=== PATIENT | male | born 1945 | race Caucasian/White ===

== ENCOUNTER 2019-10-19 15:17 | Inpatient (IN) | payer MEDICARE ==
--- NOTE | 2019-10-19 15:49 | ED ---
General Adult HPI - General Chief complaint: Recheck/Abnormal Lab/Rx Stated complaint: RUPTURE AORTA Time Seen by Provider: 10/19/19 15:29 Source: patient, RN/MD, RN notes reviewed Mode of arrival: ambulatory Limitations: no limitations - History of Present Illness Initial comments: Is a 74-year-old male with a known history of abdominal aortic aneurysm who was also having a history of chronic low back pain for the past year and a third who was an MRI today but was found that he had in addition to the abdominal a border measuring 4.4 cm evidence of dissection at the level of the kidneys with the aorta measuring 4 cm. The common iliac artery measures 2 cm on the left proximally. Patient states having no symptoms are different than when he start ed having last year and a third. No fevers chills nausea vomiting sweats no abdominal pain he has some numbness to the right leg which she states started at the same time over a year ago. - Related Data Home Medications Medication Instructions Recorded Confirmed Biotin (Unknown Strength) 1 tab PO Q48H 10/19/19 10/19/19 Cholecalciferol [Vitamin D3 (25 1,000 unit PO Q48H 10/19/19 10/19/19 Mcg = 1000 Iu)] Multivitamins, Thera [Multivitamin 1 tab PO Q48H 10/19/19 10/19/19 (formulary)] [place] 3-6-9 1 tab PO Q48H 10/19/19 10/19/19 Allergies Allergy/AdvReac Type Severity Reaction Status Date / Time No Known Allergies Allergy Verified 10/19/19 18:17 Review of Systems ROS Statement: Those systems with pertinent positive or pertinent negative responses have been documented in the HPI. ROS Other: All systems not noted in ROS Statement are negative. Past Medical History Additional Past Medical History / Comment(s): aneurysm, History of Any Multi-Drug Resistant Organisms: None Reported Past Surgical History: Adenoidectomy, Tonsillectomy Additional Past Surgical History / Comment(s): cataract, right arm, Past Psychological History: No Psychological Hx Reported Smoking Status: Former smoker Past Alcohol Use History: Occasional Past Drug Use History: Marijuana General Exam - General Exam Comments Initial Comments: This a well-developed asthenic appearing male was awake alert oriented 3 Limitations: no limitations General appearance: alert, in no apparent distress Head exam: Present: atraumatic, normocephalic, normal inspection Eye exam: Present: normal appearance, PERRL, EOMI. Absent: scleral icterus, conjunctival injection, periorbital swelling ENT exam: Present: normal exam, mucous membranes moist Neck exam: Present: normal inspection. Absent: tenderness, meningismus, lymphadenopathy Respiratory exam: Present: normal lung sounds bilaterally. Absent: respiratory distress, wheezes, rales, rhonchi, stridor Cardiovascular Exam: Present: regular rate, normal rhythm, normal heart sounds. Absent: systolic murmur, diastolic murmur, rubs, gallop, clicks GI/Abdominal exam: Present: soft, normal bowel sounds. Absent: distended, tenderness, guarding, rebound, rigid Extremities exam: Present: normal inspection, full ROM, normal capillary refill. Absent: tenderness, pedal edema, joint swelling, calf tenderness Back exam: Present: normal inspection Neurological exam: Present: alert, oriented X3, CN II-XII intact Psychiatric exam: Present: normal affect, normal mood Skin exam: Present: warm, dry, intact, normal color. Absent: rash Course Vital Signs 10/19/19 10/19/19 10/19/19 15:18 15:43 16:00 Temperature 97.9 F Pulse Rate 89 90 90 Respiratory 18 18 18 Rate Blood Pressure 149/84 152/98 133/91 O2 Sat by Pulse 95 95 95 Oximetry 10/19/19 10/19/19 10/19/19 16:30 17:00 17:30 Temperature Pulse Rate 90 81 81 Respiratory 18 18 18 Rate Blood Pressure 133/86 122/76 128/69 O2 Sat by Pulse 95 96 96 Oximetry 10/19/19 10/19/19 18:00 18:30 Temperature Pulse Rate 81 81 Respiratory 18 18 Rate Blood Pressure 131/90 139/95 O2 Sat by Pulse 96 96 Oximetry - Reevaluation(s) Reevaluation #1: 10/19/19 15:49 I did discuss case with Dr. Redman who will look at the MRI as well as evaluate the patient in the emergency department. EKG Findings - EKG Results: EKG: interpreted by ERMD, sinus rhythm (Sinus rhythm 94. Interval 186 QRS duration 100 QT since QTC 366/457 nonspecific inferior configuration) Medical Decision Making - Medical Decision Making Patient's findings were discussed with the patient has as well as with Dr. Zheng and (the patient emergency department. Patient will be admi tted with workup done by cardiology and evaluation for preparation for endovascular grafting. - Lab Data Result diagrams: 10/19/19 15:35 10/19/19 15:35 Lab Results 10/19/19 10/19/19 10/19/19 Range/Units 15:35 15:35 15:35 WBC 7.1 (3.8-10.6) k/uL RBC 4.49 (4.30-5.90) m/uL Hgb 15.0 (13.0-17.5) gm/dL Hct 45.2 (39.0-53.0) % MCV 100.8 H (80.0-100.0) fL MCH 33.3 (25.0-35.0) pg MCHC 33.1 (31.0-37.0) g/dL RDW 13.8 (11.5-15.5) % Plt Count 184 (150-450) k/uL Neutrophils % 43 % Lymphocytes % 47 % Monocytes % 4 % Eosinophils % 2 % Basophils % 1 % Neutrophils # 3.0 (1.3-7.7) k/uL Lymphocytes # 3.3 (1.0-4.8) k/uL Monocytes # 0.3 (0-1.0) k/uL Eosinophils # 0.2 (0-0.7) k/uL Basophils # 0.0 (0-0.2) k/uL PT 10.1 (9.0-12.0) sec INR 1.0 (<1.2) APTT 23.6 (22.0-30.0) sec Sodium 140 (137-145) mmol/L Potassium 3.8 (3.5-5.1) mmol/L Chloride 109 H (98-107) mmol/L Carbon Dioxide 21 L (22-30) mmol/L Anion Gap 10 mmol/L BUN 16 (9-20) mg/dL Creatinine 0.77 (0.66-1.25) mg/dL Est GFR (CKD-EPI)AfAm >90 (>60 ml/min/1.73 sqM) Est GFR (CKD-EPI)NonAf >90 (>60 ml/min/1.73 sqM) Glucose 120 H (74-99) mg/dL Calcium 9.6 (8.4-10.2) mg/dL Magnesium 2.2 (1.6-2.3) mg/dL Total Bilirubin 0.3 (0.2-1.3) mg/dL AST 28 (17-59) U/L ALT 19 (4-49) U/L Alkaline Phosphatase 100 (38-126) U/L Creatine Kinase 118 (55-170) U/L Total Protein 7.5 (6.3-8.2) g/dL Albumin 4.2 (3.5-5.0) g/dL - Radiology Data Radiology results: report reviewed (I did review the imaging and report evidence of a dissection. See complete report), image reviewed Disposition Clinical Impression: Aortic dissection Disposition: [facility]MITT[facility] IP TO [facility] Condition: Fair Referrals: None,Stated [REFERRING] - 1-2 days
[2019-10-19 16:28] LABS: Basophils % (A) 1 %; Eosinophils # (A) 0.2 k/uL (0-0.7); Eosinophils % (A) 2 %; HCT 45.2 % (39.0-53.0); Lymphocytes # (A) 3.3 k/uL (1.0-4.8); Lymphocytes % (A) 47 %; MCH 33.3 pg (25.0-35.0); MCHC 33.1 g/dL (31.0-37.0); MCV 100.8 fL (80.0-100.0); Mean Platelet Volume 7.6; Monocytes # (A) 0.3 k/uL (0-1.0); Monocytes % (A) 4 %; Neutrophils % (A) 43 %; Platelet Count 184 k/uL (150-450); RBC 4.49 m/uL (4.30-5.90); RDW 13.8 % (11.5-15.5); WBC 7.1 k/uL (3.8-10.6)
[2019-10-19 16:38] LABS: ALT 19 U/L (4-49); AST 28 U/L (17-59); African American GFR (CKD) >90 (>60 ml/min/1.73 sqM); Albumin 4.2 g/dL (3.5-5.0); Alkaline Phosphatase 100 U/L (38-126); Anion Gap 10 mmol/L; Blood Urea Nitrogen 16 mg/dL (9-20); Calcium 9.6 mg/dL (8.4-10.2); Carbon Dioxide 21 mmol/L (22-30); Chloride 109 mmol/L (98-107); Creatine Kinase 118 U/L (55-170); Glucose 120 mg/dL (74-99); Magnesium 2.2 mg/dL (1.6-2.3); Non-African American GFR(CKD) >90 (>60 ml/min/1.73 sqM); Potassium 3.8 mmol/L (3.5-5.1); Sodium 140 mmol/L (137-145); Total Bilirubin 0.3 mg/dL (0.2-1.3); Total Protein 7.5 g/dL (6.3-8.2)
[2019-10-19 16:49] LABS: Partial Thromboplastin Time 23.6 sec (22.0-30.0); Prothrombin Time 10.1 sec (9.0-12.0)
--- NOTE | 2019-10-19 18:01 | CT ---
EXAMINATION TYPE: CT angio thor/abd pel aorta DATE OF EXAM: 10/19/2019 COMPARISON: None HISTORY: AAA with dissection CT DLP: 1522.3 mGycm Automated exposure control for dose reduction was used. CONTRAST: Performed without and with IV Contrast, patient injected with 100 mL of Isovue 370. There are 3-D post processed images. Images were obtained from the thoracic inlet to the floor the [facility] with IV contrast. FINDINGS: There is tortuous aortic arch. There is aneurysm of the proximal descending thoracic aorta that measu res up to 5.5 cm. There is posterior wall thrombus and dissection seen with the false lumen posterior . There is dissecting intimal flap extending from the proximal descending thoracic aorta to the lower abdominal aorta. There is irregular plaque formation and luminal narrowing of the lower abdominal ao rta near the bifurcation. There is complex dissection at the aortic bifurcation. The anterior false l umen at the lower abdominal aorta fills the left common iliac artery. The triple-lumen has less flow and fills the right common iliac artery. The true lumen fills the celiac artery and superior mesenter ic artery. The left renal artery arises from the true lumen. The right renal artery appears to arise from the false lumen. The lower abdominal aorta has aneurysmal enlargement up to 4 cm in diameter. I see no sign of active bleeding. There is no contrast extravasation. There is patency of the iliac and femoral arteries without evidence of hemodynamic stenosis. Liver spleen stomach pancreas appear intact. Bile ducts are not dilated. Kidneys show no hydronephros is. There are bilateral multiple renal parapelvic cysts. There is no retroperitoneal adenopathy. Ther e is no sign of a bowel obstruction. There is no free air. Bladder distends smoothly. There is no jennifer e fluid in the pelvis. Thoracic and lumbar spine are intact. There is no compression fracture. Sternum is intact. IMPRESSION: There is complex dissection of the abdominal aorta and the descending thoracic aorta. There is aneury sm of the proximal descending thoracic aorta and the lower abdominal aorta as above. The true lumen i s narrowed of the lower abdominal aorta which fills the right common iliac artery.
[2019-10-19] MEDS ORDERED: NALOXONE 0.4 MG/ML 1 ML VIAL IV PRN (19:06)
[2019-10-19] MEDS ORDERED: SODIUM CHLORIDE 0.9% 1,000 ML IV SCH (19:15)
--- NOTE | 2019-10-19 20:58 | P.GSCN ---
History of Present Illness Consult date: 10/19/19 Reason for Consult: aortic dissection History of present illness: 74 year old male presented to the ER after an MRI secondary to a dissection in the aorta found on the study. Patient states having some issues with his lower extremities and chronic back discomfort. Patient denies any current abdominal pain, back pain, or pain with ambulation. He denies any fevers, chills, nausea, vomiting, chest pain or shortness of breath. He states that he used to experience sharp pains in his chest years ago but nothing recently. Review of Systems All systems: negative (what is mentioned in the HPI or PMH) Past Medical History Additional Past Medical History / Comment(s): aneurysm, History of Any Multi-Drug Resistant Organisms: None Reported Past Surgical History: Adenoidectomy, Tonsillectomy Additional Past Surgical History / Comment(s): cataract, right arm, Past Psychological History: No Psychological Hx Reported Smoking Status: Former smoker Past Alcohol Use History: Occasional Past Drug Use History: Marijuana Medications and Allergies Home Medications Medication Instructions Recorded Confirmed Type Biotin (Unknown Strength) 1 tab PO Q48H 10/19/19 10/19/19 History Cholecalciferol [Vitamin D3 (25 1,000 unit PO Q48H 10/19/19 10/19/19 History Mcg = 1000 Iu)] Multivitamins, Thera [Multivitamin 1 tab PO Q48H 10/19/19 10/19/19 History (formulary)] [place] 3-6-9 1 tab PO Q48H 10/19/19 10/19/19 History Allergies Allergy/AdvReac Type Severity Reaction Status Date / Time No Known Allergies Allergy Verified 10/19/19 18:17 Surgical - Exam Vital Signs Temp Pulse Resp BP Pulse Ox 97.9 F 89 18 149/84 95 10/19/19 15:18 10/19/19 15:18 10/19/19 15:18 10/19/19 15:18 10/19/19 15:18 - General well developed, well nourished, no distress - Eyes PERRL, normal ocular movement - ENT normal pinna, normal nares - Neck no masses - Respiratory normal expansion - Cardiovascular Rhythm: regular - Abdomen Abdomen: soft, non tender - Integumentary no rash - Neurologic normal coordination, normal sensation - Musculoskeletal normal posture - Psychiatric oriented to time, oriented to person, oriented to place, speech is normal Results - Labs 10/19/19 15:35 10/19/19 15:35 Abnormal Lab Results - Last 24 Hours (Table) 10/19/19 10/19/19 Range/Units 15:35 15:35 MCV 100.8 H (80.0-100.0) fL Chloride 109 H (98-107) mmol/L Carbon Dioxide 21 L (22-30) mmol/L Glucose 120 H (74-99) mg/dL Diabetes panel 10/19/19 Range/Units 15:35 Sodium 140 (137-145) mmol/L Potassium 3.8 (3.5-5.1) mmol/L Chloride 109 H (98-107) mmol/L Carbon Dioxide 21 L (22-30) mmol/L BUN 16 (9-20) mg/dL Creatinine 0.77 (0.66-1.25) mg/dL Glucose 120 H (74-99) mg/dL Calcium 9.6 (8.4-10.2) mg/dL AST 28 (17-59) U/L ALT 19 (4-49) U/L Alkaline Phosphatase 100 (38-126) U/L Total Protein 7.5 (6.3-8.2) g/dL Albumin 4.2 (3.5-5.0) g/dL Calcium panel 10/19/19 Range/Units 15:35 Calcium 9.6 (8.4-10.2) mg/dL Albumin 4.2 (3.5-5.0) g/dL Pituitary panel 10/19/19 Range/Units 15:35 Sodium 140 (137-145) mmol/L Potassium 3.8 (3.5-5.1) mmol/L Chloride 109 H (98-107) mmol/L Carbon Dioxide 21 L (22-30) mmol/L BUN 16 (9-20) mg/dL Creatinine 0.77 (0.66-1.25) mg/dL Glucose 120 H (74-99) mg/dL Calcium 9.6 (8.4-10.2) mg/dL Adrenal panel 10/19/19 Range/Units 15:35 Sodium 140 (137-145) mmol/L Potassium 3.8 (3.5-5.1) mmol/L Chloride 109 H (98-107) mmol/L Carbon Dioxide 21 L (22-30) mmol/L BUN 16 (9-20) mg/dL Creatinine 0.77 (0.66-1.25) mg/dL Glucose 120 H (74-99) mg/dL Calcium 9.6 (8.4-10.2) mg/dL Total Bilirubin 0.3 (0.2-1.3) mg/dL AST 28 (17-59) U/L ALT 19 (4-49) U/L Alkaline Phosphatase 100 (38-126) U/L Total Protein 7.5 (6.3-8.2) g/dL Albumin 4.2 (3.5-5.0) g/dL - Imaging CT scan - abdomen: report reviewed, image reviewed CT scan - chest: report reviewed, image reviewed Assessment and Plan Assessment: 1. Descending thoracic aortic dissection 2. Infrarenal aortic aneuysm Plan: blood [id number] control SBP 90-130's Had a long discussion with patient and his of future intervention options. I agree with admission and monitoring overnight. I reviewed the CT scan with the family. Will need surgical repair which can be done as outpatient. The dissection appears chronic in nature and patient has no symptoms currently. Follow up in the office for further discussion.
[2019-10-19 21:24] LABS: Appearance,Urine Clear (Clear); Bilirubin,Urine Negative (Negative); Blood,Urine Negative (Negative); Color,Urine Yellow; Glucose,Urine (UA) Negative (Negative); Ketones,Urine Negative (Negative); Leukocyte Esterase,Urine Negative (Negative); Nitrite,Urine Negative (Negative); PH, Urine 5.5 (5.0-8.0); Protein,Urine Negative (Negative); Urobilinogen,Urine <2.0 mg/dL (<2.0)
[2019-10-19 21:28] LABS: Specific Gravity,Urine >1.050 (1.001-1.035)
[2019-10-19] MEDS ORDERED: ENALAPRILAT 1.25 MG/ML 1 ML VIAL IVP PRN (23:13)
--- NOTE | 2019-10-19 23:15 | P.HPIM ---
History of Present Illness H&P Date: 10/19/19 Chief Complaint: Dissected aortic aneurysm, COPD, PAD, severe spinal stenosis, hypertension 74-year-old male one of my office patient with been seen since last year with past medical history of COPD, chronic lower back pain, hypertension, AAA with ultrasound was due and ordered this time. Patient presented to the office back in September 13 for severe sign and symptom of spinal stenosis was referred for lumbar x-ray showed severe degenerative joint disease. Patient was scheduled for an MRI of the lumbar spine came back with multiple disc disease and spinal stenosis with incidental finding of infrarenal dissected aortic aneurysm. Patient was sent to the emergency department where was seen and evaluated and end up having Dr. Redman vascular seen the patient. 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 Patient will be admitted and stabilized and might need to be scheduled for stent of the descending thoracic aortic aneurysm and infrarenal abdominal aneurysm. Continue to complain of significant back pain, continued to complain of mild COPD with no major flareup lately. Review of Systems CONSTITUTIONAL: Well-developed no acute respiratory distress. EYES: No icterus sclerae, no conjunctivitis. EARS, NOSE, MOUTH, THROAT, and FACE: No sore throat, lymphadenopathy, carotid bruits or deformity. RESPIRATORY: Positive shortness of breath cough wheezes. CARDIOVASCULAR: Positive PND orthopnea palpitations without angina. GASTROINTESTINAL: Mild IBS with abdominal discomfort with nausea. GENITOURINARY: Negative for Hematuria or UTI, no kidney stones. INTEGUMENT/BREAST: Negative for any muscular injury with mild osteoarthritis.. HEMATOLOGIC/LYMPHATIC: Negative for bleed or purpura. MUSCULOSKELTAL: Negative for Myalgia or arthralgia. NEURLOGICAL: No LOC, Sz or syncope, blurred vision dizziness or abnormality.. Significant weakness and lower extremity. BEHAVIORAL/PSYCH: Negative. ENDOCRINE: Negative. Past Medical History Past Medical History: Eye Disorder, Hypertension, Osteoarthritis (OA) Additional Past Medical History / Comment(s): aneurysm, History of Any Multi-Drug Resistant Organisms: None Reported Past Surgical History: Adenoidectomy, Tonsillectomy Additional Past Surgical History / Comment(s): cataract, right arm, Past Anesthesia/Blood Transfusion Reactions: No Reported Reaction Past Psychological History: No Psychological Hx Reported Smoking Status: Former smoker Past Alcohol Use History: Occasional Past Drug Use History: Marijuana - Past Family History Mother Family Medical History: Cancer Additional Family Medical History / Comment(s): Colon CA Medications and Allergies Home Medications Medication Instructions Recorded Confirmed Type Biotin (Unknown Strength) 1 tab PO Q48H 10/19/19 10/19/19 History Cholecalciferol [Vitamin D3 (25 1,000 unit PO Q48H 10/19/19 10/19/19 History Mcg = 1000 Iu)] Multivitamins, Thera [Multivitamin 1 tab PO Q48H 10/19/19 10/19/19 History (formulary)] [place] 3-6-9 1 tab PO Q48H 10/19/19 10/19/19 History Allergies Allergy/AdvReac Type Severity Reaction Status Date / Time No Known Allergies Allergy Verified 10/19/19 18:17 Physical Exam Vitals: Vital Signs Temp Pulse Pulse Resp BP BP Pulse Ox 10/19/19 19:49 98.4 F 69 16 159/91 96 10/19/19 19:31 98.0 F 75 17 140/90 97 10/19/19 18:30 81 18 139/95 96 10/19/19 18:00 81 18 131/90 96 10/19/19 17:30 81 18 128/69 96 10/19/19 17:00 81 18 122/76 96 10/19/19 16:30 90 18 133/86 95 10/19/19 16:00 90 18 133/91 95 10/19/19 15:43 90 18 152/98 95 10/19/19 15:18 97.9 F 89 18 149/84 95 Intake and Output 10/19/19 10/19/19 10/19/19 06:59 14:59 22:59 Other: Weight 79.379 kg General Appearance: Alert, cooperative, no distress, appears stated age. Neck HEENT: Supple, no lymphadenopathy, no thyroid enlargement, no carotid bruits. Lungs: Decreased breath some bilaterally with fine rhonchi positive mild expect ed wheezes. Chest Wall: Decrease expansion with deep inspiration no tenderness and no deformity was found on exam, no costochondral pain or discomfort. Heart: Irregular rate and rhythm, S1, S2 normal, positive S3 positive JVD. Back: Significant pain and discomfort in the L-spine area thoracic spine area as well. Abdomen: Soft, non-tender, bowel sounds active all four quadrants, no masses, no organomegaly. Extremities: Significant arthritis of both knees and hips with mild discoloration from the knee down. Pulses: 2+ and symmetric. Skin: Skin color, texture, tugor normal, no rashes or lesions. Neurologic: Alert oriented x3 cranial nerves II through XII intact, no motor deficit, no abnormal balance or gait. Results CBC & Chem 7: 10/19/19 15:35 10/19/19 15:35 Labs: Abnormal Lab Results - Last 24 Hours (Table) 10/19/19 10/19/19 10/19/19 Range/Units 15:35 15:35 20:55 MCV 100.8 H (80.0-100.0) fL Chloride 109 H (98-107) mmol/L Carbon Dioxide 21 L (22-30) mmol/L Glucose 120 H (74-99) mg/dL Ur Specific [place] >1.050 H (1.001-1.035) Thrombosis Risk Factor Assmnt - DVT/VTE Prophylaxis DVT/VTE Prophylaxis: Pharmacologic Prophylaxis ordered, Mechanical Prophylaxis ordered - Choose All That Apply Any of the Below Risk Factors Present?: No Each Risk Factor Represents 2 Points: Age 61-74 years Other congenital or acquired thrombophilia - If yes, enter type in comment: No Thrombosis Risk Factor Assessment Total Risk Factor Score: 2 Thrombosis Risk Factor Assessment Level: Low Risk Assessment and Plan Assessment: 1 the ascending thoracic aortic aneurysm dissection: Patient will be seen vascular, patient will be hospitalized for now conservative management. 4 stenting in the next 2 weeks. 2 large infra renal aortic aneurysm with mild dissection: Patient will require to go for stenting as well. 3 severe spinal stenosis: With severe arthritis lumbar spine area patient might need to go for pain management after the intervention on had aortic aneurysm. 4 hypertension: Well-controlled currently we will continue to use but beta lawrence keep the blood pressure below 1:30 systolic or below 90 diastolic. 5 mild PAD: No intervention is required at this point. 6 COPD: Patient will continue on O2, updraft treatment, will consult pulmonary for clearance for his aneurysm repair. 7 BPH: Watch for any urinary retention. 8 mild valvular heart disease: Will order an echocardiogram to be done in the hospital for better evaluation of the left ventricle and if there is any need for stress test or cardiac testing before aneurysm repair. 9 GI prophylaxis: Patient will be on pantoprazole 40 mg daily. 11 DVT prophylaxis: Patient can be on heparin subcutaneous Venodyne boots and knee-high AMRIK hose. CODE STATUS: Full code. Admit patient to inpatient status for more than 2 nights.
[2019-10-20 07:21] LABS: Basophils # (A) 0.1 k/uL (0-0.2); Basophils % (A) 1 %; Eosinophils # (A) 0.1 k/uL (0-0.7); Eosinophils % (A) 2 %; HCT 43.9 % (39.0-53.0); HGB 13.8 gm/dL (13.0-17.5); Lymphocytes # (A) 2.7 k/uL (1.0-4.8); Lymphocytes % (A) 39 %; MCH 32.1 pg (25.0-35.0); MCHC 31.5 g/dL (31.0-37.0); MCV 101.8 fL (80.0-100.0); Macrocytosis Slight; Mean Platelet Volume 7.9; Monocytes # (A) 0.3 k/uL (0-1.0); Monocytes % (A) 5 %; Neutrophils # (A) 3.4 k/uL (1.3-7.7); Neutrophils % (A) 49 %; Platelet Count 179 k/uL (150-450); RBC 4.31 m/uL (4.30-5.90); WBC 6.8 k/uL (3.8-10.6)
[2019-10-20 07:36] LABS: ALT 17 U/L (4-49); AST 24 U/L (17-59); African American GFR (CKD) >90 (>60 ml/min/1.73 sqM); Albumin 3.6 g/dL (3.5-5.0); Alkaline Phosphatase 87 U/L (38-126); Anion Gap 6 mmol/L; Blood Urea Nitrogen 14 mg/dL (9-20); Carbon Dioxide 22 mmol/L (22-30); Chloride 112 mmol/L (98-107); Glucose 101 mg/dL (74-99); Non-African American GFR(CKD) >90 (>60 ml/min/1.73 sqM); Potassium 3.9 mmol/L (3.5-5.1); Sodium 140 mmol/L (137-145); Total Bilirubin 0.3 mg/dL (0.2-1.3); Total Protein 6.7 g/dL (6.3-8.2)
[2019-10-20] MEDS ORDERED: PANTOPRAZOLE 40 MG/10 ML VIAL IVP SCH (09:00)
[2019-10-20] MEDS ORDERED: METOPROLOL TARTRATE 25 MG TAB PO SCH (09:00)
[2019-10-20] MEDS ORDERED: HEPARIN SODIUM,PORCINE 5,000 UNIT/ML 1 ML VIAL SQ SCH (09:00)
[2019-10-20] MEDS ORDERED: amLODIPine 5 MG TAB PO SCH (09:00)
[2019-10-20] MEDS ORDERED: ATORVASTATIN 40 MG TAB PO SCH (09:30)
[2019-10-20 09:46] VITALS: BP 150/82; PULSE 78; RESP 20; TEMP 98.3
--- NOTE | 2019-10-20 10:40 | P.DS ---
Providers Date of admission: 10/19/19 19:23 Expected date of discharge: 10/20/19 Attending physician: Doug Zheng Consults: 10/19/19 19:07 Consult Physician Routine Consulting Provider: Braulio [place] Consult Reason/Comments: Cardiology clearance for surgery Do you want consulting provider notified?: Yes 10/19/19 19:08 Consult Physician Urgent Consulting Provider: Jesse Redman Reason/Comments: Aortic aneurysm and dissection Do you want consulting provider notified?: Already Contacted Primary care physician: [facility] Course: 74-year-old male one of my office patient with been seen since last year with past medical history of COPD, chronic lower back pain, hypertension, AAA with ultrasound was due and ordered this time. Patient presented to the office back in September 13 for severe sign and symptom of spinal stenosis was referred for lumbar x-ray showed severe degenerative joint disease. Patient was scheduled for an MRI of the lumbar spine came back with multiple disc disease and spinal stenosis with incidental finding of infrarenal dissected aortic aneurysm. Patient was sent to the emergency department where was seen and evaluated and end up having Dr. Redman vascular seen the patient. 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 Patient will be admitted and stabilized and might need to be scheduled for stent of the descending thoracic aortic aneurysm and infrarenal abdominal aneurysm. Continue to complain of significant back pain, continued to complain of mild COPD with no major flareup lately. 10/19: The patient has been rechecked today. He has been seen by cardiology with plan for Lexiscan stress test to be done tomorrow and he will have an appointment Friday at 3:[address] Thorne. We have added in amlodipine and Lopressor for blood pressure control and also Lipitor is new. These prescriptions will be sent to his pharmacy. We have added in a consult with pulmonary medicine for preop clearance and PFT testing in the office. Patient will be discharged home today in stable condition. Discharge Diagnoses: 1 the ascending thoracic aortic aneurysm dissection 2 large infra renal aortic aneurysm with mild dissection, incidental finding on MRI 3 severe spinal stenosis: With severe arthritis lumbar spine 4 hypertension 5 mild PAD 6 COPD 7 BPH 8 mild valvular heart disease 9 COVID-19 Discharge plan: Home Impression and plan of care have been directed as dictated by the signing physician. Emilia Noel nurse practitioner acting as scribe for signing physician. Patient Condition at Discharge: Good Plan - Discharge Summary Discharge Rx Participant: Yes New Discharge Prescriptions: New Metoprolol Tartrate [Lopressor] 25 mg PO BID #60 tab amLODIPine [Norvasc] 5 mg PO DAILY #30 tab Atorvastatin [Lipitor] 40 mg PO DAILY #30 tablet Continue Multivitamins, Thera [Multivitamin (formulary)] 1 tab PO Q48H Cholecalciferol [Vitamin D3 (25 Mcg = 1000 Iu)] 1,000 unit PO Q48H Biotin (Unknown Strength) 1 tab PO Q48H [place] 3-6-9 1 tab PO Q48H Discharge Medication List Biotin (Unknown Strength) 1 tab PO Q48H 10/19/19 [History] Cholecalciferol [Vitamin D3 (25 Mcg = 1000 Iu)] 1,000 unit PO Q48H 10/19/19 [History] Multivitamins, Thera [Multivitamin (formulary)] 1 tab PO Q48H 10/19/19 [History] [place] 3-6-9 1 tab PO Q48H 10/19/19 [History] Atorvastatin [Lipitor] 40 mg PO DAILY #30 tablet 10/20/19 [Rx] Metoprolol Tartrate [Lopressor] 25 mg PO BID #60 tab 10/20/19 [Rx] amLODIPine [Norvasc] 5 mg PO DAILY #30 tab 10/20/19 [Rx] Follow up Appointment(s)/Referral(s): Contreras Zuniga MD [STAFF PHYSICIAN] - 1 Week Juhi Thorne MD [STAFF PHYSICIAN] - 10/22/19 3:30 pm Doug Zheng MD [Primary Care Provider] - 1 Week Discharge Disposition: HOME SELF-CARE
--- NOTE | 2019-10-20 10:46 | P.PN ---
Subjective Progress Note Date: 10/20/19 Patient is seen and examined sitting up in bed. Patient has no complaints this morning. There were no acute changes through the night. Denies any shortness of breath, chest pain, abdominal pain. Patient was seen by Dr. Redman yesterday and reviewed CT angiogram results with patient and his . Patient will follow up after discharge with Dr. Redman. Objective - Vital Signs Vital signs: Vital Signs Temp 98.3 F 10/20/19 09:00 Pulse 78 10/20/19 09:00 Resp 20 10/20/19 09:00 BP 150/82 10/20/19 09:00 Pulse Ox 96 10/20/19 09:00 Intake & Output 10/19/19 10/20/19 10/20/19 18:59 06:59 18:59 Intake Total 360 Balance 360 Weight 79.379 kg 78.3 kg Intake: Oral 360 Other: Voiding Method Toilet # Voids 1 - Exam General appearance: The patient is alert, oriented, in no acute distress. HET: Head is normocephalic and atraumatic. Pupils are equal and reactive. Oropharynx is clear without lesions. Neck: Supple without lymphadenopathy. Trachea midline. No audible carotid bruits bilaterally. Heart: S1 S2. Regular rate and rhythm. Lungs: No crackles or wheezes are heard. Abdomen: Soft, nontender, nondistended with bowel sounds. No peritoneal signs. No palpable organomegaly or masses. Extremities: Normal skin color and turgor. No cyanosis, rash, ulceration, clubbing, or edema. Radial and pedal pulses are 2/4 bilaterally. Neurological: No focal deficits. Strength and sensation are grossly intact. - Labs CBC & Chem 7: 10/20/19 05:51 10/20/19 05:51 Labs: Abnormal Lab Results - Last 24 Hours (Table) 10/19/19 10/19/19 10/19/19 Range/Units 15:35 15:35 20:55 MCV 100.8 H (80.0-100.0) fL Chloride 109 H (98-107) mmol/L Carbon Dioxide 21 L (22-30) mmol/L Creatinine (0.66-1.25) mg/dL Glucose 120 H (74-99) mg/dL Ur Specific [place] >1.050 H (1.001-1.035) 10/20/19 10/20/19 Range/Units 05:51 05:51 MCV 101.8 H (80.0-100.0) fL Chloride 112 H (98-107) mmol/L Carbon Dioxide (22-30) mmol/L Creatinine 0.60 L (0.66-1.25) mg/dL Glucose 101 H (74-99) mg/dL Ur Specific [place] (1.001-1.035) Assessment and Plan Assessment: 1. Descending thoracic aortic dissection 2. Infrarenal aortic aneurysm Plan: Patient is being discharged today. The plan if for outpatient surgical repair. He will follow-up with Dr. Redman in the office for further discussion. The above dictated assessment and findings were discussed with Dr. Lane. The impression and plan of care have been directed as dictated.
--- NOTE | 2019-10-20 11:05 | CONS ---
CONSULTATION Mr. Campo is a 74-year-old male who was admitted through the emergency room for evaluation of dissection of the aorta. The patient was noted to have and an abdominal aortic aneurysm was dissection yesterday, underwent an MRI that revealed evidence of dissection of the thoracic aorta. There appears to be a chronic dissection. He was admitted to undergo further evaluation. His CT scan revealed complex dissection of the abdominal aorta and descending thoracic aorta at type 2 dissection and aneurysm proximal descending aorta and lower abdominal aorta as well. The finding of dissection is unclear. 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 Although a year ago, he had an episode of severe back discomfort which he had at times, but it was worse than usual. He did not seek medical attention at that time. He denies any dizziness or palpitation. No change in his breathing. He denies any wheezing. No cough. He denies any history of PND, orthopnea, or peripheral edema. He coronary risk factors negative for prior history of smoking or hypertension, he is nondiabetic. He smokes marijuana. MEDICATIONS: At the time of admission included omega-3 fish oil, vitamin D, amlodipine, and metoprolol tartrate. REVIEW OF SYSTEMS: RESPIRATORY SYSTEM: he has no recent wheezing. No cough. No history of obstructive lung disease. GI SYSTEM: No recent GI bleeding, no peptic ulcer disease. SYSTEM: No dysuria, hematuria. NERVOUS SYSTEM: No stroke or seizure. PHYSICAL EXAMINATION: A 74-year-old male, alert, oriented, in no apparent distress. Blood pressure 146/80 with a heart rate in the 60s. HEAD: Normocephalic. EYES: Sclerae nonicteric. NECK: Bruit on the left side. HEART: Regular rate and rhythm. S1, S2. No S3 with systolic murmur heard at the base, ejection type, no diastolic murmur, no rub. ABDOMEN: Soft, nontender, positive bowel sounds. no organomegaly. EXTREMITIES: No edema, intact pulses. LAB DATA: Revealed hemoglobin 13.8. BUN creatinine 14.6, potassium 3.9. EKG reveals sinus mechanism, rate of 94, normal axis and intervals, cannot exclude inferior myocardial infarction of unknown duration. IMPRESSION: 1. Type B aortic dissection, appears to be chronic. It is possible that the back discomfort he had a year ago could be the timing of the dissection. 2. History of hypertension as an outpatient, treated. 3. History of chronic back pain. RECOMMENDATION: From the cardiac standpoint, agree with your plan to obtain echocardiogram with Doppler. I will increase the dose of his beta lawrence. I will add a statin to his regimen. Patient will need preop evaluation for possible surgical repair. If it is a type B chronic dissection at times clinical observation can be considered, depending on the size of his abdominal dissection and the flow. He will be further evaluated as an outpatient regarding that finding. I discussed those findings with the patient as well as Dr. Zheng. He will be set up to undergo a myocardial perfusion imaging as an outpatient and he will be followed at that time. Thank you for this consult. Will follow with you. MMODL / IJN: [id number] /
--- NOTE | 2019-10-20 11:57 | ECHOF ---
Referral Reason:LVF, AV MEASUREMENTS -------- HEIGHT: 177.8 cm WEIGHT: 78.0 kg BP: IVSd: 1.8 cm (0.6 - 1.1) LVIDd: 2.4 cm (3.9 - 5.3) LVPWd: 1.6 cm (0.6 - 1.1) IVSs: 2.0 cm LVIDs: 1.9 cm LVPWs: 1.5 cm LAESV Index (A-L): 36.64 ml/m Ao Diam: 3.8 cm (2.0 - 3.7) AV Cusp: 2.1 cm (1.5 - 2.6) LA Diam: 3.1 cm (2.7 - 3.8) MV EXCURSION: 7.419 mm (> 18.000) MV EF SLOPE: 53 mm/s (70 - 150) EPSS: 1.0 cm MV E [place]: 0.71 m/s MV DecT: 125 ms MV A [place]: 0.55 m/s MV E/A Ratio: 1.30 AR PHT: 437 ms RAP: 5.00 mmHg RVSP: 20.68 mmHg FINDINGS -------- Sinus rhythm. This was a technically adequate study. The left ventricular size is normal. There is moderate concentric left ventricular hypertrophy. O verall left ventricular systolic function is normal with, an EF between 55 - 60 %. The right ventricle is normal in size. LA is moderately dilated 34-39 ml/m2 The right atrial size is normal. The aortic valve is trileaflet and appears structurally normal. There is mild aortic regurgitation. The mitral valve is normal. Mild mitral regurgitation is present. The tricuspid valve appears structurally normal. Mild tricuspid regurgitation present. Right vent ricular systolic pressure is normal at < 35 mmHg. There is no pulmonic regurgitation present. The aortic root is dilated measuring 3.8 cm. IVC Not well visulized. There is no pericardial effusion. CONCLUSIONS -------- 1. Sinus rhythm. 2. This was a technically adequate study. 3. The left ventricular size is normal. 4. There is moderate concentric left ventricular hypertrophy. 5. Overall left ventricular systolic function is normal with, an EF between 55 - 60 %. 6. The right ventricle is normal in size. 7. LA is moderately dilated 34-39 ml/m2 8. The right atrial size is normal. 9. The aortic valve is trileaflet and appears structurally normal. 10. There is mild aortic regurgitation. 11. The mitral valve is normal. 12. Mild mitral regurgitation is present. 13. The tricuspid valve appears structurally normal. 14. Mild tricuspid regurgitation present. 15. Right ventricular systolic pressure is normal at < 35 mmHg. 16. There is no pulmonic regurgitation present. 17. The aortic root is dilated measuring 3.8 cm. 18. IVC Not well visulized. 19. There is no pericardial effusion. PORTAL ARCHITECT: Linda Cramer RDCS
--- NOTE | 2019-10-20 13:12 | P.CNPUL ---
History of Present Illness Consult date: 10/20/19 Requesting physician: Doug Zheng Reason for consult: other Chief complaint: Pulmonary clearance for abdominal aortic aneurysm repair surgery History of present illness: 74-year-old white male patient of Dr. Zheng with known history of abdominal aortic aneurysm, COPD, chronic and ongoing history of smoking marijuana on a daily basis, chronic lower back pain, hypertension, who went for an outpatient MRI of the lumbar spine which showed severe degenerative joint disease and spinal stenosis and incidental finding of infrarenal dissected aortic aneurysm. Patient was then sent to the emergency department to be evaluated by vascular surgery. Otherwise he was asymptomatic, did not complain of any chest pain, no abdominal pain. Patient did have some issues with his lower extremities and chr onic back discomfort. Denied any shortness of breath, no chest pain, no fevers, chills, nausea no vomiting. Computed tomography scan of the chest, abdomen and pelvis showed complex dissection of the abdominal aorta and the descending thoracic aorta. There was an aneurysm of the proximal descending thoracic aorta in the lower abdominal aorta, with narrowing of the true lumen of the lower abdominal aorta which fills the right common iliac artery. Patient denies any pulmonary symptoms, no coughing, no wheezing, no shortness of breath. Vital signs have been stable. Labs showed white blood cell count of 7.1, hemoglobin 15.0, coagulation profile was within normal limits, sodium is 140, potassium is 3.8, chloride is 109, CO2 is 21, BUN of 16, creatinine is 0.7, LFTs were within normal limits, urinalysis was negative for any sign of infection, coronavirus PCR was negative. Echocardiogram showed moderate concentric left ventricular hypertrophy, EF between 55-60%, mild aortic regurgitation, mild mitral regurgitation, mild tricuspid regurgitation, and right-sided pressures less than 35 mmHg. IVC is not well visualized. Dilated aortic root measuring 3.8 cm. No pericardial effusion. Room air pulse ox is 96%, no fever or chills, we were asked to see the patient for pulmonary clearance, bedside PFT has been ordered and is pending at this time, possible discharge home is pending with outpatient stress test for cardiac clearance and surgery for repair of the descending thoracic aortic dissection and infrarenal aortic aneurysm Review of Systems All systems: negative Constitutional: Denies chills, Denies fever Eyes: denies blurred vision, denies pain Ears, nose, mouth and throat: Denies headache, Denies sore throat Cardiovascular: Denies chest pain, Denies shortness of breath Respiratory: Denies cough Gastrointestinal: Denies abdominal pain, Denies diarrhea, Denies nausea, Denies vomiting Musculoskeletal: Reports low back pain, Denies myalgias Integumentary: Denies pruritus, Denies rash Neurological: Denies numbness, Denies weakness Psychiatric: Denies anxiety, Denies depression Endocrine: Denies fatigue, Denies weight change Past Medical History Past Medical History: Eye Disorder, Hypertension, Osteoarthritis (OA) Additional Past Medical History / Comment(s): aneurysm, History of Any Multi-Drug Resistant Organisms: None Reported Past Surgical History: Adenoidectomy, Tonsillectomy Additional Past Surgical History / Comment(s): cataract, right arm, Past Anesthesia/Blood Transfusion Reactions: No Reported Reaction Past Psychological History: No Psychological Hx Reported Smoking Status: Former smoker Past Alcohol Use History: Occasional Past Drug Use History: Marijuana - Past Family History Mother Family Medical History: Cancer Additional Family Medical History / Comment(s): Colon CA Medications and Allergies Home Medications Medication Instructions Recorded Confirmed Type Biotin (Unknown Strength) 1 tab PO Q48H 10/19/19 10/19/19 History Cholecalciferol [Vitamin D3 (25 1,000 unit PO Q48H 10/19/19 10/19/19 History Mcg = 1000 Iu)] Multivitamins, Thera [Multivitamin 1 tab PO Q48H 10/19/19 10/19/19 History (formulary)] [place] 3-6-9 1 tab PO Q48H 10/19/19 10/19/19 History Atorvastatin [Lipitor] 40 mg PO DAILY #30 tablet 10/20/19 Rx Metoprolol Tartrate [Lopressor] 25 mg PO BID #60 tab 10/20/19 Rx amLODIPine [Norvasc] 5 mg PO DAILY #30 tab 10/20/19 Rx Allergies Allergy/AdvReac Type Severity Reaction Status Date / Time No Known Allergies Allergy Verified 10/19/19 18:17 Physical Exam Vitals: Vital Signs Temp Pulse Pulse Resp BP BP Pulse Ox 10/20/19 09:00 98.3 F 78 20 150/82 96 10/20/19 04:00 98.1 F 67 16 146/86 95 10/20/19 00:00 98.4 F 69 16 154/91 96 10/19/19 19:31 98.0 F 75 17 140/90 97 10/19/19 18:30 81 18 139/95 96 10/19/19 18:00 81 18 131/90 96 10/19/19 17:30 81 18 128/69 96 10/19/19 17:00 81 18 122/76 96 10/19/19 16:30 90 18 133/86 95 10/19/19 16:00 90 18 133/91 95 10/19/19 15:43 90 18 152/98 95 10/19/19 15:18 97.9 F 89 18 149/84 95 Intake and Output 10/19/19 10/20/19 10/20/19 22:59 06:59 14:59 Intake Total 360 Balance 360 Intake: Oral 360 Other: Voiding Method Toilet # Voids 1 Weight 79.379 kg 78.3 kg GENERAL EXAM: Alert, very pleasant, 74-year-old white male on room air with a pulse ox of 96%, comfortable in no apparent distress. HEAD: Normocephalic/atraumatic. EYES: Normal reaction of pupils, equal size. Conjunctiva pink, sclera white. NOSE: Clear with pink turbinates. THROAT: No erythema or exudates. NECK: No masses, no JVD, no thyroid enlargement, no adenopathy. CHEST: No chest wall deformity. Symmetrical expansion. LUNGS: Equal air entry with no crackles, wheeze, rhonchi or dullness. CVS: Regular rate and rhythm, normal S1 and S2, no gallops, no murmurs, no rubs ABDOMEN: Soft, nontender. No hepatosplenomegaly, normal bowel sounds, no guarding or rigidity. EXTREMITIES: No clubbing, no edema, no cyanosis, 2+ pulses and upper and lower extremities. MUSCULOSKELETAL: Muscle strength and tone normal. SPINE: No scoliosis or deformity SKIN: No rashes CENTRAL NERVOUS SYSTEM: Alert and oriented -3. No focal deficits, tone is normal in all 4 extremities. PSYCHIATRIC: Alert and oriented -3. Appropriate affect. Intact judgment and insight. Results - Laboratory Findings CBC and BMP: 10/20/19 05:51 10/20/19 05:51 PT/INR, D-dimer PT 10.1 sec (9.0-12.0) 10/19/19 15:35 INR 1.0 (<1.2) 10/19/19 15:35 Abnormal lab findings: Abnormal Labs 10/19/19 10/19/19 10/19/19 15:35 15:35 20:55 MCV 100.8 H Chloride 109 H Carbon Dioxide 21 L Creatinine Glucose 120 H Ur Specific [place] >1.050 H 10/20/19 10/20/19 05:51 05:51 MCV 101.8 H Chloride 112 H Carbon Dioxide Creatinine 0.60 L Glucose 101 H Ur Specific [place] - Diagnostic Findings CT scan - chest: report reviewed, image reviewed Assessment and Plan Plan: Assessment: #1. Complex dissection of the abdominal aorta and the descending thoracic a melissa, surgical repair is pending, once cleared by pulmonary and cardiology. This was an incidental finding on the MRI of the lumbar spine obtained for evaluation of low back pain #2. Infrarenal aortic aneurysm #3. Chronic low back pain related to history of degenerative disc disease #4. Hypertension #5. History of COPD not oxygen dependent, not on any inhalers #6. History of abdominal aortic aneurysm under surveillance #7. Osteoarthritis #8. Chronic and ongoing history of marijuana smoking Plan: PFT was ordered, however patient has no pulmonary complaints, is on room air, no difficulty breathing, no congestion, no wheezing, will obtain bedside FEV1 only. He is normally on not on any oxygen, no inhalers. He is cleared for surgery from pulmonary perspective pending review of his FEV1. Vital signs are stable, no pulmonary issues at this time. I performed a history & physical examination of the patient and discussed their management with my nurse practitioner, Sridevi Lopez. I reviewed the nurse practitioner's note and agree with the documented findings and plan of care. Lung sounds are positive for clear breath sounds. The findings and the impression was discussed with the patient. I attest to the documentation by the nurse practitioner. Time with Patient: Greater than 30
--- NOTE | 2019-10-20 13:31 | P.CNPUL ---
History of Present Illness Consult date: 10/20/19 Requesting physician: Doug Zheng Reason for consult: other (Preop clearance for descending chronic thoracic aortic dissection and infrarenal aortic aneurysm repair) Chief complaint: Descending aneurysm repair History of present illness: A very pleasant 74-year-old gentleman who follows with Dr. Zheng as his primary care provider. He has a history of hypertension, hyperlipidemia, osteoarthrit is, ascending thoracic aortic aneurysm. He had an outpatient MRI for his chronic low back pain and was noted to have abdominal aortic aneurysm and abdominal aortic dissection. There is degenerative disc disease and facet arthroplasty without significant spinal stenosis. [facility] on these findings. No chest pain. No abdominal discomfort. No shortness of breath. Some chronic lower extremity discomfort secondary to the chronic low back pain. Thoracic aorta CT revealed complex dissection of the abdominal aorta and descending thoracic aorta which measures 5.5 cm. There is posterior wall thrombus and dissection seen within the false lumen posterior. No active bleeding. No contrast extravasation. There is aneurysm of the proximal descending thoracic aorta in the lower abdominal aorta. True lumen is narrowed of the lower abdominal aorta which fills the right common iliac artery. He had been seen and evaluated by thoracic surgery who feels this is a chronic dissection and the plan will be for repair in the outpatient setting. We are consulting for preop clearance. The patient does have a history of previous tobacco dependence and many years of ongoing marijuana use on a daily basis. He has not been on any inhalers in the outpatient setting. No home oxygen. No pulmonary complaints. He is maintaining O2 saturations in the mid 90s on room air. Able to do his day-to-day activities without any significant shortness of breath. White count 6.8. Hemoglobin 13.8. Sodium 140. Potassium 3.9. Creatinine 0.60. Dennis virus not detected. Review of Systems REVIEW OF SYSTEMS: CONSTITUTIONAL: Denies any recent significant weight loss or weight gain. EYES: Denies change in vision. EARS, NOSE, MOUTH, THROAT: Denies headaches, denies sore throat. CARDIOVASCULAR: Denies chest pain, palpitations or syncopal episodes. RESPIRATORY: Denies shortness of breath, cough, congestion or hemoptysis. GASTROINTESTINAL: Denies change in appetite, denies abdominal pain GENITOURINARY: Denies hematuria, denies infections. MUSKULOSKELETAL: Chronic low back pain with some discomfort in the lower extremities, denies swelling. INTEGUMENTARY: Denies rash, denies eczema. NEUROLOGICAL: Denies recent memory loss, no recent seizure activity. PSYCHIATRIC: Denies anxiety, denies depression. HEMATOLOGIC/LYMPHATIC: Denies anemia, denies enlarged lymph nodes. Past Medical History Past Medical History: Eye Disorder, Hypertension, Osteoarthritis (OA) Additional Past Medical History / Comment(s): aneurysm, History of Any Multi-Drug Resistant Organisms: None Reported Past Surgical History: Adenoidectomy, Tonsillectomy Additional Past Surgical History / Comment(s): cataract, right arm, Past Anesthesia/Blood Transfusion Reactions: No Reported Reaction Past Psychological History: No Psychological Hx Reported Smoking Status: Former smoker Past Alcohol Use History: Occasional Past Drug Use History: Marijuana - Past Family History Mother Family Medical History: Cancer Additional Family Medical History / Comment(s): Colon CA Medications and Allergies Home Medications Medication Instructions Recorded Confirmed Type Biotin (Unknown Strength) 1 tab PO Q48H 10/19/19 10/19/19 History Cholecalciferol [Vitamin D3 (25 1,000 unit PO Q48H 10/19/19 10/19/19 History Mcg = 1000 Iu)] Multivitamins, Thera [Multivitamin 1 tab PO Q48H 10/19/19 10/19/19 History (formulary)] [place] 3-6-9 1 tab PO Q48H 10/19/19 10/19/19 History Atorvastatin [Lipitor] 40 mg PO DAILY #30 tablet 10/20/19 Rx Metoprolol Tartrate [Lopressor] 25 mg PO BID #60 tab 10/20/19 Rx amLODIPine [Norvasc] 5 mg PO DAILY #30 tab 10/20/19 Rx Allergies Allergy/AdvReac Type Severity Reaction Status Date / Time No Known Allergies Allergy Verified 10/19/19 18:17 Physical Exam Vitals: Vital Signs Temp Pulse Pulse Resp BP BP Pulse Ox 10/20/19 09:00 98.3 F 78 20 150/82 96 10/20/19 04:00 98.1 F 67 16 146/86 95 10/20/19 00:00 98.4 F 69 16 154/91 96 10/19/19 19:31 98.0 F 75 17 140/90 97 10/19/19 18:30 81 18 139/95 96 10/19/19 18:00 81 18 131/90 96 10/19/19 17:30 81 18 128/69 96 10/19/19 17:00 81 18 122/76 96 10/19/19 16:30 90 18 133/86 95 10/19/19 16:00 90 18 133/91 95 10/19/19 15:43 90 18 152/98 95 10/19/19 15:18 97.9 F 89 18 149/84 95 Intake and Output 10/19/19 10/20/19 10/20/19 22:59 06:59 14:59 Intake Total 360 Balance 360 Intake: Oral 360 Other: Voiding Method Toilet # Voids 1 Weight 79.379 kg 78.3 kg GENERAL EXAM: Alert, active, pleasant 74-year-old gentleman, on room air, comfortable in no apparent distress. HEAD: Normocephalic. EYES: Normal reaction of pupils, equal size. NOSE: Clear with pink turbinates. THROAT: No erythema or exudates. NECK: No masses, no JVD. CHEST: No chest wall deformity. LUNGS: Equal air entry with no crackles, wheeze, rhonchi or dullness. CVS: S1 and S2 normal with no audible murmur, regular rhythm. ABDOMEN: No hepatosplenomegaly, normal bowel sounds, no guarding or rigidity. SPINE: Chronic low back pain SKIN: No rashes CENTRAL NERVOUS SYSTEM: No focal deficits, tone is normal in all 4 extremities. EXTREMITIES: There is no peripheral edema. No clubbing, no cyanosis. Peripheral pulses are intact. Results - Laboratory Findings CBC and BMP: 10/20/19 05:51 10/20/19 05:51 PT/INR, D-dimer PT 10.1 sec (9.0-12.0) 10/19/19 15:35 INR 1.0 (<1.2) 10/19/19 15:35 Abnormal lab findings: Abnormal Labs 10/19/19 10/19/19 10/19/19 15:35 15:35 20:55 MCV 100.8 H Chloride 109 H Carbon Dioxide 21 L Creatinine Glucose 120 H Ur Specific [place] >1.050 H 10/20/19 10/20/19 05:51 05:51 MCV 101.8 H Chloride 112 H Carbon Dioxide Creatinine 0.60 L Glucose 101 H Ur Specific [place] Assessment and Plan Assessment: 1 Chronic low back pain and MRI of the back performed on 10/19/2019 revealed abdominal aortic aneurysm and abdominal aortic dissection. There is degenerative disc disease and facet arthroplasty. No significant spinal stenosis. The patient was directed to the emergency room based on these findings. Thoracic aorta CT revealed complex dissection of the abdominal aorta and descending thoracic aorta which measures 5.5 cm. There is posterior wall thrombus and dissection seen within the false lumen posterior. No active bleeding. No contrast extravasation. There is aneurysm of the proximal descending thoracic aorta in the lower abdominal aorta. True lumen is narrowed of the lower abdominal aorta which fills the right common iliac artery. The patient was seen by vascular surgery and the plan will be for outpatient repair. 2 Hypertension 3 Hyperlipidemia 4 Osteoarthritis 5 Remote history of chronic tobacco dependence 6 Chronic and ongoing daily marijuana use 8 Occasional alcohol use Plan: The patient was seen and evaluated by Dr. Zuniga CAT scan, echo, labs all reviewed Maintain optimal blood pressure No pulmonary issues currently Obtain a bedside spirometry Educated regarding the importance of complete smoking cessation including ashley rueda No contraindication for surgery for the pulmonary standpoint We will follow in the immediate postoperative setting I, the cosigning physician, performed a history & physical examination of the patient. Lungs sounds are clear. Maintaining good O2 saturations in the 90s on room air. I discussed the assessment and plan of care with my nurse practitioner, Margarette Magallon. I attest to the above consultation as dictated by her. Time with Patient: Greater than 30
[2019-10-20] MEDS ORDERED: METOPROLOL TARTRATE 50 MG TAB PO SCH (21:00)
== END 2019-10-20 11:46 | disposition home or self-care (01) | DRG 301 ==
LOC: EC 15:17 → 3SCARD 19:23
PROVIDERS: ADMIT Internal Medicine Geriatric Medicine; ATTEND Internal Medicine Geriatric Medicine
DX: I71.01 Dissection of thoracic aorta (principal); I71.02 Dissection of abdominal aorta; N40.0 Benign prostatic hyperplasia without lower urinary tract symptoms; I10 Essential (primary) hypertension; J44.9 Chronic obstructive pulmonary disease, unspecified; I72.2 Aneurysm of renal artery; G89.29 Other chronic pain; I73.9 Peripheral vascular disease, unspecified; E78.5 Hyperlipidemia, unspecified; M48.00 Spinal stenosis, site unspecified; M47.816 Spondylosis without myelopathy or radiculopathy, lumbar region; I05.9 Rheumatic mitral valve disease, unspecified; M19.90 Unspecified osteoarthritis, unspecified site; F12.90 Cannabis use, unspecified, uncomplicated; Z90.89 Acquired absence of other organs; Z98.49 Cataract extraction status, unspecified eye; Z80.0 Family history of malignant neoplasm of digestive organs; Z87.891 Personal history of nicotine dependence; Z79.899 Other long term (current) drug therapy; Z86.79 Personal history of other diseases of the circulatory system; Z11.59 Encounter for screening for other viral diseases
CPT/HCPCS: 36415; 71275; 72148; 74174; 80053; 81003; 82550; 83735; 85025; 85610; 85730; 93005; 93306; 99285

== ENCOUNTER → 2019-10-19 | Outpatient (CLI) | payer MEDICARE ==
--- NOTE | 2019-10-19 14:57 | MR ---
EXAMINATION TYPE: MR lumbar spine wo con DATE OF EXAM: 10/19/2019 COMPARISON: Plain film from outside institution 09/15/2019 HISTORY: Chronic Lower Back Pain. Xrays done at [facility] showed abnormalities. TECHNIQUE: Multiplanar, multisequence images of the lumbar spine were acquired. L1-L2: Posterior extension endplate disc complex causes mild anterior mass effect on the thecal sac. No significant spinal stenosis. Circumferential extension of endplate disc complex encroaches somewha t on the left neural foramen. L2-L3: Cerclage posterior disc bulge causes mild anterior mass effect on the thecal sac. Lateral exte nsion causes some foraminal encroachment on the right. There is some facet arthropathy change. No sig nificant spinal stenosis. L3-L4: Posterior extension endplate disc complex causes mild anterior mass effect on the thecal sac. Hypertrophic changes of the ligamentum flavum causes some posterior lateral mass effect on the thecal sac. Circumferential extension endplate disc complex results in foraminal encroachment greater on th e right and likely contributed by the spinal curvature. No significant spinal stenosis. L4-L5: Posterior broad-based disc bulge, circumferential extension endplate disc complex noted causin g some mild anterior mass effect on the thecal sac, some right-sided foraminal encroachment. No signi ficant spinal stenosis. There is facet arthropathy change. L5-S1: Posterior broad-based disc bulge causes mild anterior mass effect on the thecal sac. Circumfer ential extension endplate disc complex results in some foraminal encroachment greater on the left. Fa cet arthropathy is noted. No significant spinal stenosis. Lumbar segments are intact. No paraspinal masses are identified. Conus medullaris has a normal appe arance. There is a spinal curvature as noted on plain film. Lumbar vertebral bodies show preserved he ight and alignment. Heterogeneous marrow signal may be due to some marrow reconversion, correlate for possible anemia. There is multilevel spondylosis. Loss of disc height and signal is greatest at L4-5 , L5-S1, L3-4, L1-T12 L1. Infrarenal abdominal aorta measures 4.4 cm in radius transverse dimension i n its visualized portion, and there is dissection noted along the abdominal aorta at the level of the kidneys with aorta measures 4 cm, common iliac artery measures 2 cm on the left proximally. Parapelvic cysts are noted within the kidneys. IMPRESSION: Abdominal aortic aneurysm and abdominal aortic dissection. Degenerative disc disease and facet arthropathy, no significant spinal stenosis. A Yellow level critical message alert has been initiated for Doug Zheng MD via the [employer] Critical Results System on 10/19/2019 2:54 PM. This message alert has been sent to Doug Zheng MD via the preferences provided by the clinician for the receipt of Radiology Critical Findings. Message ID [id number].
== END | disposition home or self-care (01) ==
LOC: RADMRIMAIN 09:19
PROVIDERS: ATTEND Internal Medicine Geriatric Medicine
DX: M51.36 Other intervertebral disc degeneration, lumbar region (principal); M47.816 Spondylosis without myelopathy or radiculopathy, lumbar region
CPT/HCPCS: 72148

== ENCOUNTER → 2019-12-01 | Outpatient (CLI) | payer MEDICARE ==
[2019-12-01 09:23] LABS: Basophils % (A) 1 %; Eosinophils # (A) 0.2 k/uL (0-0.7); Eosinophils % (A) 3 %; HCT 44.3 % (39.0-53.0); HGB 14.5 gm/dL (13.0-17.5); Lymphocytes # (A) 2.3 k/uL (1.0-4.8); Lymphocytes % (A) 40 %; MCH 33.6 pg (25.0-35.0); MCHC 32.8 g/dL (31.0-37.0); MCV 102.5 fL (80.0-100.0); Macrocytosis Slight; Mean Platelet Volume 7.6; Monocytes # (A) 0.3 k/uL (0-1.0); Monocytes % (A) 6 %; Neutrophils # (A) 2.7 k/uL (1.3-7.7); Neutrophils % (A) 48 %; Platelet Count 163 k/uL (150-450); RBC 4.32 m/uL (4.30-5.90); RDW 13.7 % (11.5-15.5); WBC 5.7 k/uL (3.8-10.6)
[2019-12-01 16:49] LABS: African American GFR (CKD) 108.5 (60.0-200.0); Albumin 4.2 g/dL (3.80-4.90); Albumin/Globulin Ratio 1.56 (1.60-3.17); Anion Gap 7.1 mmol/L (4.00-12.00); BUN/Creat Ratio 17.14 Ratio (12.00-20.00); Calcium 9.9 mg/dL (8.7-10.3); Carbon Dioxide 24.9 mmol/L (21.6-31.8); Globulin 2.7 g/dL (1.6-3.3); Non-African American GFR(CKD) 93.6 (60.0-200.0); Potassium 3.8 mmol/L (3.5-5.5); Total Bilirubin 0.5 mg/dL (0.2-1.2); Total Protein 6.9 g/dL (6.2-8.2)
[2019-12-01 16:51] LABS: Prothrombin Time 10.7 sec (9.9-11.9)
== END | disposition home or self-care (01) ==
LOC: LABWHC1 08:12
PROVIDERS: ATTEND Surgery
DX: I71.6 Thoracoabdominal aortic aneurysm, without rupture (principal)
CPT/HCPCS: 36415; 80053; 85025; 85610

== ENCOUNTER → 2020-03-09 | Outpatient (CLI) | payer MEDICARE | END | disposition home or self-care (01) | LOC: LABWHC1 15:18 | PROVIDERS: ATTEND Internal Medicine Geriatric Medicine | DX: Z20.828 Contact with and (suspected) exposure to other viral communicable diseases (principal) | CPT/HCPCS: U0003; C9803 ==

== ENCOUNTER → 2020-03-14 | Outpatient (CLI) | payer MEDICARE ==
--- NOTE | 2020-03-14 09:27 | US ---
EXAMINATION TYPE: US abdomen complete DATE OF EXAM: 03/14/2020 COMPARISON: CT 10/19/2019 CLINICAL HISTORY: 74-year-old male R10.84 generalized abdominal pain. Intermittent abdomen pain x man y years, patient states he has aortic aneurysm and has had multiple stents placed. TECHNIQUE: Multiple sonographic images of the abdomen are obtained. FINDINGS: EXAM MEASUREMENTS: Liver Length: 12.6 cm Gallbladder Wall: 0.2 cm CBD: 0.3 cm Spleen: Unable to assess Right Kidney: 10.4 x 5.7 x 5.7 cm Left Kidney: 11.5 x 5.8 x 5.2 cm Risk Modeler notes: Difficult and limited by rib shadowing and overlying bowel gas Pancreas: visualized portions wnl Liver: visualized portions wnl Gallbladder: wnl Evidence for sonographic Parr's sign: no CBD: visualized portions wnl Spleen: obscured Right Kidney: cortical thinning, multiple cystic areas with largest measuring 1.6cm Left Kidney: multiple cystic areas with largest measuring 2.0cm Upper IVC: wnl Abd Aorta: Entire abdominal aorta measures aneurysmal with largest diameter at distal aorta 4.0 x 2.6 cm (versus 4.3 cm on the 10/19/2019 CT). The midportion measures 3.6 x 3.2 cm. Proximal portion measures 3.5 x 3.4 cm. Known underlying dissection is not as well characterized on ultrasound. IMPRESSION: 1. Limited exam technically difficult exam due to overlying bowel gas and rib shadowing. 2. Diffusely aneurysmal abdominal aorta measuring up to 4.0 cm distally (versus 4.3 cm on the 0 CT). No underlying abdominal aortic dissection is not well characterized on ultrasound. 3. Exam limitations due to bowel gas shadowing. Unable to visualize the spleen.
== END | disposition home or self-care (01) ==
LOC: RADUSWWP 07:25
PROVIDERS: ATTEND Internal Medicine Geriatric Medicine
DX: R14.3 Flatulence (principal); R93.5 Abnormal findings on diagnostic imaging of other abdominal regions, including retroperitoneum
CPT/HCPCS: 76700

== ENCOUNTER 2020-11-24 03:17 | Emergency (ER) | payer MEDICARE ==
[2020-11-24 03:26] VITALS: TEMP 97.7
[2020-11-24 03:49] VITALS: RESP 20
[2020-11-24] MEDS ORDERED: SODIUM CHLORIDE 0.9% 500 ML 500 ML IV STA (04:04)
[2020-11-24] MEDS ORDERED: MORPHINE SULFATE 4 MG/ML SYRINGE IV STA (04:04)
[2020-11-24] MEDS ORDERED: ONDANSETRON 4 MG/2 ML VIAL IVP STA (04:04)
[2020-11-24] MEDS ORDERED: diphenhydrAMINE 50 MG/ML 1 ML VIAL IVP STA (04:04)
--- NOTE | 2020-11-24 04:45 | CT ---
EXAMINATION TYPE: CT brain wo con DATE OF EXAM: 11/24/2020 COMPARISON: None HISTORY: headache CT DLP: 1157.4 mGycm Automated exposure control for dose reduction was used. There is widening of the subdural space over both cerebral hemispheres. This measures up to 8 mm in t hickness with intermediate density fluid that is greater than CSF. This fluid is isodense with the br ain parenchyma. This is consistent with subacute bilateral subdural hemorrhages. The ventricles are r elatively small for the patient's age. There is some high attenuation in the posterior sylvian fissur es that could be acute subarachnoid hemorrhage. The calvarium is intact. There is normal aeration of the mastoid sinuses. There is no evidence of a skull fracture. IMPRESSION: Bilateral hemisphere subacute subdural hemorrhages with some compression of the brain and reduction o f the sulci and the size of the ventricles. There is no evidence of uncal herniation. There is normal appearance of the circummesencephalic cistern. There is probably some acute subarachnoid hemorrhage in the posterior sylvian fissures. This exam was discussed with ER physician at 4:45 AM.
[2020-11-24 05:19] LABS: African American GFR (CKD) >90 (>60 ml/min/1.73 sqM); Anion Gap 8 mmol/L; Blood Urea Nitrogen 12 mg/dL (9-20); Calcium 9.2 mg/dL (8.4-10.2); Carbon Dioxide 21 mmol/L (22-30); Chloride 112 mmol/L (98-107); Glucose 121 mg/dL (74-99); Non-African American GFR(CKD) >90 (>60 ml/min/1.73 sqM); Potassium 3.9 mmol/L (3.5-5.1); Sodium 141 mmol/L (137-145)
[2020-11-24 05:24] LABS: Basophils % (A) 0 %; Eosinophils % (A) 1 %; HCT 38.1 % (39.0-53.0); HGB 12.9 gm/dL (13.0-17.5); Lymphocytes # (A) 1.3 k/uL (1.0-4.8); Lymphocytes % (A) 27 %; MCH 34.6 pg (25.0-35.0); MCV 101.8 fL (80.0-100.0); Macrocytosis Slight; Mean Platelet Volume 7.9; Monocytes # (A) 0.3 k/uL (0-1.0); Monocytes % (A) 5 %; Neutrophils # (A) 3.1 k/uL (1.3-7.7); Neutrophils % (A) 64 %; Platelet Count 91 k/uL (150-450); RBC 3.74 m/uL (4.30-5.90); RDW 14.1 % (11.5-15.5); WBC 4.8 k/uL (3.8-10.6)
[2020-11-24 05:27] LABS: INR 1.1 (<1.2)
--- NOTE | 2020-11-24 05:38 | ED ---
Headache HPI - General Chief Complaint: Headache Stated Complaint: Headache Time Seen by Provider: 11/24/20 03:37 Mode of arrival: ambulatory Limitations: no limitations - History of Present Illness Initial Comments: This patient is a 75-year-old man who presents with complaint of headache that is gotten progressively worse over the past 2 days. The patient states it is now the worst headache he's had. Indicates bilateral occipital areas but states it is now affecting his whole head. He has not noted any neurologic or stroke like symptoms. No neck stiffness or pain. No fever or chills. He does not recall having a fall or any trauma. MD Complaint: headache -: days(s) Onset Description: gradual Location: right, left, temporal, occipital Severity: severe Quality: different than previous headaches, worst headache of life Consistency: constant Improves With: nothing Worsens With: none Context: occurred at rest - Related Data Home Medications Medication Instructions Recorded Confirmed Biotin (Unknown Strength) 1 tab PO Q48H 10/19/19 10/19/19 Cholecalciferol [Vitamin D3 (25 1,000 unit PO Q48H 10/19/19 10/19/19 Mcg = 1000 Iu)] Multivitamins, Thera [Multivitamin 1 tab PO Q48H 10/19/19 10/19/19 (formulary)] [place] 3-6-9 1 tab PO Q48H 10/19/19 10/19/19 Previous Rx's Medication Instructions Recorded Atorvastatin [Lipitor] 40 mg PO DAILY #30 tablet 10/20/19 Metoprolol Tartrate [Lopressor] 25 mg PO BID #60 tab 10/20/19 amLODIPine [Norvasc] 5 mg PO DAILY #30 tab 10/20/19 Allergies Allergy/AdvReac Type Severity Reaction Status Date / Time No Known Allergies Allergy Verified 11/24/20 03:26 Review of Systems ROS Statement: Those systems with pertinent positive or pertinent negative responses have been documented in the HPI. ROS Other: All systems not noted in ROS Statement are negative. Constitutional: Denies: fever, chills, weakness Eyes: Denies: eye pain, vision change ENT: Denies: ear pain, epistaxis Respiratory: Denies: cough, dyspnea Cardiovascular: Denies: chest pain, palpitations, syncope Gastrointestinal: Denies: abdominal pain, nausea, vomiting Genitourinary: Denies: dysuria, hematuria Musculoskeletal: Denies: back pain Skin: Denies: rash Neurological: Reports: headache. Denies: weakness, numbness, paresthesias, confusion Hematological/Lymphatic: Denies: easy bleeding Past Medical History Past Medical History: Eye Disorder, Hypertension, Osteoarthritis (OA) Additional Past Medical History / Comment(s): aneurysm, History of Any Multi-Drug Resistant Organisms: None Reported Past Surgical History: Adenoidectomy, Heart Catheterization With Stent, Tonsillectomy Additional Past Surgical History / Comment(s): cataract, right arm, Past Anesthesia/Blood Transfusion Reactions: No Reported Reaction Past Psychological History: No Psychological Hx Reported Smoking Status: Former smoker Past Alcohol Use History: Occasional Past Drug Use History: Marijuana - Past Family History Mother Family Medical History: Cancer Additional Family Medical History / Comment(s): Colon CA General Exam Limitations: no limitations General appearance: alert, in no apparent distress Head exam: Present: atraumatic, normocephalic Eye exam: Present: normal appearance, PERRL, EOMI. Absent: scleral icterus, conjunctival injection, nystagmus ENT exam: Present: normal oropharynx, mucous membranes moist, TM's normal bilaterally, normal external ear exam Neck exam: Present: normal inspection, full ROM. Absent: tenderness, meningism us Respiratory exam: Present: normal lung sounds bilaterally. Absent: respiratory distress, wheezes, rales, rhonchi, stridor Cardiovascular Exam: Present: regular rate, normal rhythm, normal heart sounds. Absent: systolic murmur, diastolic murmur, rubs, gallop Extremities exam: Present: normal inspection, normal capillary refill. Absent: pedal edema Back exam: Present: normal inspection. Absent: CVA tenderness (R), CVA tenderness (L), vertebral tenderness Neurological exam: Present: alert, oriented X3, CN II-XII intact. Absent: motor sensory deficit Skin exam: Present: warm, dry, intact, normal color. Absent: rash Course Vital Signs 11/24/20 11/24/20 11/24/20 03:20 03:46 04:10 Temperature 97.7 F Pulse Rate 66 73 Respiratory 22 20 Rate Blood Pressure 170/83 138/74 172/73 O2 Sat by Pulse 98 98 Oximetry 11/24/20 06:10 Temperature Pulse Rate 71 Respiratory 20 Rate Blood Pressure 165/81 O2 Sat by Pulse 96 Oximetry Medical Decision Making - Medical Decision Making Patient is 75-year-old man with progressively worsening headache. Computed tomography scan reveals what appears to be subacute subdural hemorrhage and possibly some subarachnoid hemorrhage as well. I discussed the finding with the patient's and . Initially they did request to go to the closest facility being [facility] but there is no ICU bed availability there. They then expressed desire to have transfer to [facility]. Discussed the case with Dr. Terrell there who will accept transfer. - Lab Data Result diagrams: 11/24/20 04:59 11/24/20 04:59 Lab Results 11/24/20 11/24/20 11/24/20 Range/Units 04:59 04:59 04:59 WBC 4.8 (3.8-10.6) k/uL RBC 3.74 L (4.30-5.90) m/uL Hgb 12.9 L (13.0-17.5) gm/dL Hct 38.1 L (39.0-53.0) % MCV 101.8 H (80.0-100.0) fL MCH 34.6 (25.0-35.0) pg MCHC 34.0 (31.0-37.0) g/dL RDW 14.1 (11.5-15.5) % Plt Count 91 L (150-450) k/uL MPV 7.9 Neutrophils % 64 % Lymphocytes % 27 % Monocytes % 5 % Eosinophils % 1 % Basophils % 0 % Neutrophils # 3.1 (1.3-7.7) k/uL Lymphocytes # 1.3 (1.0-4.8) k/uL Monocytes # 0.3 (0-1.0) k/uL Eosinophils # 0.0 (0-0.7) k/uL Basophils # 0.0 (0-0.2) k/uL Macrocytosis Slight PT 12.0 (9.0-12.0) sec INR 1.1 (<1.2) APTT 23.0 (22.0-30.0) sec Sodium 141 (137-145) mmol/L Potassium 3.9 (3.5-5.1) mmol/L Chloride 112 H (98-107) mmol/L Carbon Dioxide 21 L (22-30) mmol/L Anion Gap 8 mmol/L BUN 12 (9-20) mg/dL Creatinine 0.66 (0.66-1.25) mg/dL Est GFR (CKD-EPI)AfAm >90 (>60 ml/min/1.73 sqM) Est GFR (CKD-EPI)NonAf >90 (>60 ml/min/1.73 sqM) Glucose 121 H (74-99) mg/dL Calcium 9.2 (8.4-10.2) mg/dL Critical Care Time Critical Care Time: Yes (35 minutes) Disposition Clinical Impression: Headache, Subdural hematoma Disposition: OTHER INSTITUTION NOT DEFINED Condition: Serious Instructions (If sedation given, give patient instructions): Acute Headache (ED) Referrals: Doug Zheng MD [Primary Care Provider] - 1-2 days - Out of Hospital Transfer - Req. Specs Out of Hospital Transfer - Requested Specifics: Other Emergency Center
[2020-11-24 06:10] VITALS: BP 165/81; PULSE 71
== END 2020-11-24 06:38 | disposition other institution (70) ==
LOC: EC 03:17
DX: I62.00 Nontraumatic subdural hemorrhage, unspecified (principal); I10 Essential (primary) hypertension; M19.90 Unspecified osteoarthritis, unspecified site; Z87.891 Personal history of nicotine dependence
CPT/HCPCS: 36415; 80048; 85025; 85610; 85730; 70450; 99291; 96374; 96375 ×2; 96361 ×2; J2270; J1200; J2405